=== PATIENT | female | born 1955 | race Caucasian/White ===

== ENCOUNTER 2017-08-24 21:09 | Emergency (ER) | payer MEDICARE ==
[~2017-08-24] VITALS: Ht 170.2 cm; Wt 56.9 kg
[2017-08-24] MEDS ORDERED: DIPHENHYDRAMINE 50 MG/ML, 1ML ONE (21:20)
[2017-08-24] MEDS ORDERED: methylPREDNISolone SOD SUCC 125 MG/2 ML ONE (21:20)
[2017-08-24] MEDS ORDERED: EPINEPHRINE 1 MG/ML, 1ML ONE (21:20)
[2017-08-24] MEDS ORDERED: FAMOTIDINE 20 MG/2 ML ONE (21:20)
[2017-08-24] MEDS ORDERED: FAMOTIDINE 20 MG/2 ML IVPush ONE (21:30)
[2017-08-24] MEDS ORDERED: methylPREDNISolone SOD SUCC 125 MG/2 ML IVPush ONE (21:30)
[2017-08-24] MEDS ORDERED: DIPHENHYDRAMINE 50 MG/ML, 1ML IVPush ONE (21:30)
[2017-08-24] MEDS ORDERED: SODIUM CHLORIDE FLUSH 10ML SYR IVF ONE (21:30)
[2017-08-24] MEDS ORDERED: LORazepam 2 MG/ML, 1ML ONE (21:56)
[2017-08-24] MEDS ORDERED: LORazepam 2 MG/ML, 1ML IVPush ONE (22:00)
[2017-08-24 22:53] VITALS: BP 118/55
== END 2017-08-24 23:38 | disposition home or self-care (01) ==
LOC: ED 22:05
DX: F41.1 Generalized anxiety disorder (principal)
CPT/HCPCS: 71046; 96374; 96375; 99284; J1200; J2060; J2930; S0028; 96361

== ENCOUNTER → 2017-09-19 | Outpatient (CLI) | payer MEDICARE | END | disposition home or self-care (01) | LOC: CFH 07:06 | PROVIDERS: ATTEND Family Medicine | DX: Z12.31 Encounter for screening mammogram for malignant neoplasm of breast (principal); Z80.3 Family history of malignant neoplasm of breast | CPT/HCPCS: 77067 ==

== ENCOUNTER 2019-11-15 15:15 | Emergency (ER) | payer MEDICARE ==
[~2019-11-15] VITALS: Ht 170.2 cm; Wt 57.0 kg
[2019-11-15] MEDS ORDERED: SODIUM CHLORIDE FLUSH 10ML SYR IVF ONE ×2 (15:30→19:00)
[2019-11-15 15:49] LABS: BASOPHILS % (AUTO) 1 % (0-1); EOSINOPHILS % (AUTO) 0 % (1-7); LYMPHOCYTES % (AUTO) 20 % (22-44); MEAN CORPUSCULAR HEMOGLOBIN 29.8 pg (27.0-34.8); MEAN CORPUSCULAR HGB CONC 33.6 g/dL (32.4-35.8); MONOCYTES % (AUTO) 10 % (2-9); NEUTROPHILS % (AUTO) 69 % (42-75); PLATELET COUNT 300 x10^3/uL (130-400); RED BLOOD COUNT 5.12 x10^6/uL (3.82-5.3); RED CELL DISTRIBUTION WIDTH 13.3 % (9.6-15.2)
[2019-11-15 15:50] LABS: MD NO
[2019-11-15 16:01] LABS: ALANINE AMINOTRANSFERASE 33 U/L (12-78); ANION GAP 7 mmol/L (5-15); CALCIUM 9.5 mg/dL (8.5-10.1); CHLORIDE 104 mmol/L (98-107); CREATININE 0.97 mg/dL (0.55-1.02)
[2019-11-15 16:03] LABS: ALKALINE PHOSPHATASE 93 U/L (45-117); BILIRUBIN,TOTAL 0.9 mg/dL (0.2-1.0)
[2019-11-15 16:27] LABS: MICROSCOPIC NOT IND
--- NOTE | 2019-11-15 17:10 | NUR ---
HERPETOLOGIST: PT AMBULATORY TO ROOM WITH STEADY GAIT WITH CHAIN SAW OPERATOR AT THIS TIME FROM [facility]
--- NOTE | 2019-11-15 17:20 | NUR ---
1720 Pt in room at this time.
--- NOTE | 2019-11-15 17:29 | NUR ---
Pt report that she had [place] take out food about 25 days ago. Pt reports that her pain is getting worse everyday. Reports n/v/d non stop. Pt reports that she has not eaten for 2 days. Pt reports no gi histroy. Pt reports she does not feel well and needs this problem addressed. Pt resting in bed. Provided warm blanket. Awaiting lab results. Pt has call light in reach. Connected to [employer] and [employer].
--- NOTE | 2019-11-15 18:00 | NUR ---
PIV placed, ct notified.
[2019-11-15] MEDS ORDERED: OMNIPAQUE 350 MG/ML, 100ML BOTTLE ONE (18:18)
--- NOTE | 2019-11-15 18:32 | NUR ---
Pt unable to provide stool sample.
[2019-11-15] MEDS ORDERED: ONDANSETRON 2MG/ML, 2ML ONE (18:59)
[2019-11-15] MEDS ORDERED: DICYCLOMINE 10 MG/ML, 2ML ONE (18:59)
[2019-11-15] MEDS ORDERED: DICYCLOMINE 10 MG/ML, 2ML IM ONE (19:00)
[2019-11-15] MEDS ORDERED: ONDANSETRON 2MG/ML, 2ML IVPush ONE (19:00)
[2019-11-15] MEDS ORDERED: SODIUM CHLORIDE 0.9% 1,000ML IVBOLUS ONE (19:00)
--- NOTE | 2019-11-15 19:10 | NUR ---
break rn: PT. MEDICATED PER APR FOR 6/10 ABD PAIN; DENIES NAUSEA OR NEED FOR NAUSEA MEDS AT THIS TIME, AWARE MEDS ARE AVAIL IF NEEDED. PT. PROVIDED WITH WATER AFTER OK FROM MD. DENIES OTHER NEEDS AT THIS TIME. VS UPDATED. AT FOR SUPPORT. CONTINUOUS PULSE OX AND B/P MONITORS IN PLACE.
--- NOTE | 2019-11-15 19:35 | NUR ---
DR. CAMP AT TO DISCUSS ED FINDINGS AND POC WITH PT. AND AT BS.
--- NOTE | 2019-11-15 20:24 | NUR ---
ASSIST RN: RE-EVALUATION DONE. PATIENT DISCHARGED WITH PRESCRIPTIONS AND INSTRUCTION. VERBALIZED UNDERSTANDING.
[2019-11-15 20:27] VITALS: BP 104/65
--- NOTE | 2019-11-15 20:27 | NUR ---
Patient/Caregiver given discharge instructions and they have confirmed that they understand the instructions. Patient ambulatory with steady gait.
== END 2019-11-15 20:33 | disposition home or self-care (01) ==
LOC: ED 20:00
DX: K57.90 Diverticulosis of intestine, part unspecified, without perforation or abscess without bleeding (principal); R19.7 Diarrhea, unspecified; R10.84 Generalized abdominal pain; R93.5 Abnormal findings on diagnostic imaging of other abdominal regions, including retroperitoneum; M19.90 Unspecified osteoarthritis, unspecified site; Z90.89 Acquired absence of other organs; Z90.710 Acquired absence of both cervix and uterus
CPT/HCPCS: 36415; 74177; 80053; 81003; 83690; 85025; 96360; 96372; 99285; J0500; J7030; Q9967